=== PATIENT | female | born 1980 | race Caucasian/White ===

== ENCOUNTER → 2019-02-25 | Outpatient (CLI) | payer BC, OTHER ==
--- NOTE | 2019-02-25 14:58 | RADIOLOGY REPORT (SQ) ---
EXAM DESCRIPTION: MRI RT UPPER JOINT WITHOUT COMPLETED DATE/TIME: 02/25/2019 1:11 pm REASON FOR STUDY: M25.511 PAIN IN RIGHT SHOULDER M25.511 PAIN IN RIGHT SHOULDER COMPARISON: None. TECHNIQUE: Right shoulder images acquired and stored on PACS. Multiplanar imaging to include fat sen sitive sequences such as T1, water sensitive sequences such as FST2/STIR, cartilage sensitive sequenc es such as FSPD/gradient-echo sequences. LIMITATIONS: None. FINDINGS: BONE MARROW AND CORTEX: Small cysts and erosions in the lateral humeral head and greater t uberosity underlying cuff insertion. No suspicious lesions. No occult fracture. No marrow replacem ent. JOINT OR BURSAL EFFUSION: Trace bursal fluid. No significant joint effusion. GLENO-HUMERAL ARTICULATION: No overt subluxation or dislocation or focal chondral lesions. ACROMION AND AC JOINT: Mild degenerative overgrowth in the AC joint, predominantly dorsal. No wide melinda. Mild acromial spurring and down slope. There is subacromial narrowing present. ROTATOR CUFF AND INTERVAL: Irregular cuff tear in the supraspinatus with delamination along the artic ular surface and a component of full-thickness breech focally along insertion. The infraspinatus ten dinosis. No overt cuff muscle atrophy. LABRUM AND BICEPS LABRAL COMPLEX: Intact. No labral tear. Intra-articular long-head biceps tendon n ormal. Distal biceps in normal location in bicipital groove. REMAINDER OF LABRUM AND IGHL : Relatively intact. No overt tear or paralabral cyst. PERIARTICULAR AND ADJACENT SOFT TISSUES: No masses or abnormal nodes. OTHER: No other significant finding. IMPRESSION: 1. Cuff tear as above. Includes a focal full-thickness area of perforation along supraspinatus inser tion. 2. Other findings as noted. TECHNICAL DOCUMENTATION: JOB ID: [id number] [employer]- All Rights Reserved Reading location - IP/workstation name: [email or web address]
== END ==
LOC: RAD 12:36
PROVIDERS: ATTEND Nurse Practitioner Family
DX: M75.121 Complete rotator cuff tear or rupture of right shoulder, not specified as traumatic (principal); M25.511 Pain in right shoulder